=== PATIENT | female | born 1935 | race African-American/Black ===

== ENCOUNTER 2017-11-21 15:38 | Inpatient (IN) | payer MEDICARE, OTHER ==
[~2017-11-21] VITALS: Ht 167.6 cm; Wt 69.9 kg
[~2017-11-21 15:38] MED LIST: BECL8.7A6 INH; FLUT1AER IH; LOSA1TAB40 PO; NAPR-681 PO; SITA100T11 PO
[2017-11-21] MEDS ORDERED: IPRATROPIUM BROMIDE (0.02%) 0.5MG/2.5ML NEB HHN STA (16:51)
[2017-11-21] MEDS ORDERED: METHYLPREDNISOLONE SOD SUCC 125 MG/2 ML VIAL IV STA (16:51)
[2017-11-21 17:08] LABS: HEMATOCRIT. 39.5 % (36.0-48.0); HEMOGLOBIN. 12.6 g/dL (12.0-16.0); MEAN CORPUSCULAR HEMOGLOBIN 25.2 pg (28.0-32.0); MEAN CORPUSCULAR VOLUME 79.1 fL (81.0-99.0); MEAN PLATELET VOLUME 8.1 fl (7.4-10.4); PLATELET 291 x1000/uL (130-400); RED BLOOD CELL COUNT 4.99 mill/uL (4.2-5.4); RED CELL DISTRIBUTION WIDTH 15.2 % (11.6-14.6)
[2017-11-21 17:17] LABS: CHLORIDE 103 mEq/L (98-107)
[2017-11-21] MEDS: ALBUTEROL (0.083%) 2.5MG/3ML NEB HHN SCH ×4 (17:43→21:10)
[2017-11-21 18:13] LABS: PLATELET ESTIMATE NORMAL
[2017-11-21] MEDS ORDERED: ENOXAPARIN 30MG/0.3ML SYR SUBCUT SCH (23:00)
[2017-11-21] MEDS ORDERED: MORPHINE SULFATE 4 MG/ML CPJ (NOT FOR IM USE) IV PRN (23:00)
[2017-11-22] VITALS (7 sets, daily range): BP systolic 113–156; BP diastolic 53–77
[2017-11-22] MEDS: SODIUM CHLORIDE 0.9% 1,000 ML IV SCH (04:33)
[2017-11-22] MEDS: DILTIAZEM HCL 60MG TABLET PO SCH ×3 (06:40→21:07)
[2017-11-22] MEDS: PIPERACILLIN/TAZ 3.375G PREMIX 50 ML IV SCH ×2 (06:40→13:11)
[2017-11-22] MEDS: PANTOPRAZOLE 40MG DR TABLET PO SCH ×2 (06:40→20:48)
[2017-11-22 08:03] LABS: HEMATOCRIT. 37.2 % (36.0-48.0); HEMOGLOBIN. 11.9 g/dL (12.0-16.0); MEAN CORPUSCULAR HEMOGLOBIN 25.2 pg (28.0-32.0); MEAN CORPUSCULAR VOLUME 78.8 fL (81.0-99.0); MEAN PLATELET VOLUME 8.9 fl (7.4-10.4); PLATELET 293 x1000/uL (130-400); RED BLOOD CELL COUNT 4.72 mill/uL (4.2-5.4); RED CELL DISTRIBUTION WIDTH 15.3 % (11.6-14.6)
[2017-11-22] MEDS: LOSARTAN POTASSIUM 50 MG TABLET PO SCH ×2 (08:34→20:48)
[2017-11-22] MEDS: ASPIRIN 81MG TABLET PO SCH (08:34)
[2017-11-22 08:35] LABS: CHLORIDE 101 mEq/L (98-107)
[2017-11-22] MEDS: ENOXAPARIN 40MG/0.4ML SYR SUBCUT SCH (08:35)
[2017-11-22] MEDS: METHYLPREDNISOLONE SOD SUCC 40 MG/ML VIAL IV SCH ×2 (08:35→20:47)
[2017-11-22 08:49] LABS: PLATELET ESTIMATE NORMAL
[2017-11-22] MEDS: ALBUTEROL (0.083%) 2.5MG/3ML NEB HHN PRN ×2 (09:07→21:15)
[2017-11-22 09:09] LABS: HDL CHOLESTEROL 117 mg/dL (40-59); LDL CHOLESTEROL 67 mg/dL (5-100)
[2017-11-22] MEDS: BLOOD SUGAR DIAGNOSTIC STRIP TEST SCH ×3 (11:58→20:48)
[2017-11-22] MEDS ORDERED: POTASSIUM CHLORIDE 10MEQ TABLET SR PO NR (20:00)
[2017-11-22] MEDS ORDERED: DEXTROSE 50% WATER 50ML SYRINGE IV PRN (20:15)
[2017-11-22] MEDS: ATORVASTATIN CALCIUM 20MG TABLET PO SCH (20:48)
[2017-11-22] MEDS ORDERED: LEVOFLOXACIN 500MG PREMIX 100 ML IV SCH (21:00)
[2017-11-22] MEDS: INSULIN LISPRO 100 UNITS/ML SUBCUT SCH (21:36)
[2017-11-22] MEDS ORDERED: PIPERACILLIN/TAZ 3.375G PREMIX 50 ML IV SCH (23:00)
[2017-11-23 00:17] VITALS: BP 135/49
[2017-11-23] MEDS: ALBUTEROL (0.083%) 2.5MG/3ML NEB HHN PRN ×6 (01:01→21:20)
[2017-11-23] MEDS: SODIUM CHLORIDE 0.9% 1,000 ML IV SCH ×2 (01:46→23:03)
[2017-11-23 04:09] VITALS: BP 117/70
[2017-11-23] MEDS ORDERED: PIPERACILLIN/TAZ 3.375G PREMIX 50 ML IV SCH (06:00)
[2017-11-23] MEDS: BLOOD SUGAR DIAGNOSTIC STRIP TEST SCH ×4 (06:35→21:00)
[2017-11-23] MEDS: DILTIAZEM HCL 60MG TABLET PO SCH ×3 (06:35→22:04)
[2017-11-23] MEDS: PANTOPRAZOLE 40MG DR TABLET PO SCH ×2 (06:35→20:50)
[2017-11-23 07:24] LABS: HEMATOCRIT. 35.6 % (36.0-48.0); HEMOGLOBIN. 11.3 g/dL (12.0-16.0); MEAN CORPUSCULAR HEMOGLOBIN 25.5 pg (28.0-32.0); MEAN CORPUSCULAR VOLUME 80.2 fL (81.0-99.0); MEAN PLATELET VOLUME 8.8 fl (7.4-10.4); PLATELET 272 x1000/uL (130-400); RED BLOOD CELL COUNT 4.44 mill/uL (4.2-5.4); RED CELL DISTRIBUTION WIDTH 15.4 % (11.6-14.6)
[2017-11-23 07:39] LABS: CHLORIDE 107 mEq/L (98-107)
[2017-11-23 08:00] VITALS: BP 115/55
[2017-11-23] MEDS: INSULIN LISPRO 100 UNITS/ML SUBCUT SCH ×4 (08:22→22:05)
[2017-11-23] MEDS: METHYLPREDNISOLONE SOD SUCC 40 MG/ML VIAL IV SCH ×2 (09:12→20:42)
[2017-11-23] MEDS: ENOXAPARIN 40MG/0.4ML SYR SUBCUT SCH (09:12)
[2017-11-23] MEDS: ASPIRIN 81MG TABLET PO SCH (09:12)
[2017-11-23] MEDS: LOSARTAN POTASSIUM 50 MG TABLET PO SCH ×2 (09:12→20:50)
[2017-11-23 12:00] VITALS: BP 139/74
[2017-11-23 12:34] LABS: INR 1.1; PROTHROMBIN TIME 11.8 sec (9.4-11.6)
[2017-11-23 16:00] VITALS: BP 139/79
[2017-11-23 18:37] LABS: PLATELET ESTIMATE NORMAL
[2017-11-23 20:00] VITALS: BP 145/75
[2017-11-23] MEDS: ATORVASTATIN CALCIUM 20MG TABLET PO SCH (20:49)
[2017-11-23] MEDS ORDERED: LEVOFLOXACIN 250MG PREMIX 50 ML IV SCH (21:00)
[2017-11-23 21:13] LABS: CLARITY URINE CLEAR (CLEAR); COLOR URINE YELLOW (YELLOW); KETONES URINE NEGATIVE (NEGATIVE); LEUKOCYTE ESTERASE URINE NEGATIVE (NEGATIVE); NITRITE URINE NEGATIVE (NEGATIVE); OCCULT BLOOD URINE NEGATIVE (NEGATIVE); PH URINE 5.5 (4.5-8.0); PROTEIN URINE NEGATIVE (NEGATIVE); UROBILINOGEN URINE 0.2 E.U./dL (0.2-1.0)
[2017-11-23 21:27] LABS: *AMPHETAMINES SCREEN URINE NEGATIVE (NEGATIVE); *BARBITURATES SCREEN URINE NEGATIVE (NEGATIVE); *BENZODIAZEPINES SCREEN URINE NEGATIVE (NEGATIVE); *COCAINE SCREEN URINE NEGATIVE (NEGATIVE); METHADONE URINE SCREEN NEGATIVE (NEGATIVE); OPIATES URINE SCREEN NEGATIVE (NEGATIVE)
[2017-11-23 21:28] LABS: CANNABINOID URINE SCREEN NEGATIVE (NEGATIVE); PHENCYCLIDINE URINE SCREEN NEGATIVE (NEGATIVE)
[2017-11-24] VITALS: BP 129/77
[2017-11-24 04:00] VITALS: BP 156/83
[2017-11-24] MEDS: PANTOPRAZOLE 40MG DR TABLET PO SCH (05:57)
[2017-11-24] MEDS: DILTIAZEM HCL 60MG TABLET PO SCH ×2 (05:57→12:56)
[2017-11-24] MEDS: BLOOD SUGAR DIAGNOSTIC STRIP TEST SCH ×3 (07:04→17:03)
[2017-11-24 07:15] LABS: HEMATOCRIT. 35.6 % (36.0-48.0); HEMOGLOBIN. 11.4 g/dL (12.0-16.0); MEAN CORPUSCULAR HEMOGLOBIN 25.6 pg (28.0-32.0); MEAN CORPUSCULAR VOLUME 79.8 fL (81.0-99.0); MEAN PLATELET VOLUME 8.7 fl (7.4-10.4); PLATELET 293 x1000/uL (130-400); RED BLOOD CELL COUNT 4.46 mill/uL (4.2-5.4); RED CELL DISTRIBUTION WIDTH 15.5 % (11.6-14.6)
[2017-11-24 08:00] VITALS: BP 155/80
[2017-11-24 08:09] LABS: CHLORIDE 106 mEq/L (98-107)
[2017-11-24] MEDS: LOSARTAN POTASSIUM 50 MG TABLET PO SCH (08:35)
[2017-11-24] MEDS: METHYLPREDNISOLONE SOD SUCC 40 MG/ML VIAL IV SCH (08:35)
[2017-11-24] MEDS: ENOXAPARIN 40MG/0.4ML SYR SUBCUT SCH (08:35)
[2017-11-24] MEDS: ASPIRIN 81MG TABLET PO SCH (08:35)
[2017-11-24] MEDS: INSULIN LISPRO 100 UNITS/ML SUBCUT SCH ×2 (08:41→12:58)
[2017-11-24 12:00] VITALS: BP 114/66
[2017-11-24 14:06] LABS: PLATELET ESTIMATE NORMAL
[2017-11-24] MEDS: ALBUTEROL (0.083%) 2.5MG/3ML NEB HHN PRN (14:22)
[2017-11-24 16:00] VITALS: BP 159/84
[2017-11-24] MEDS: SODIUM CHLORIDE 0.9% 1,000 ML IV SCH (16:00)
[2017-11-24 16:45] VITALS: BP 159/84
== END 2017-11-24 18:00 | disposition home or self-care (01) | DRG 189 ==
LOC: ER 15:38 → 6WST 20:40 → ENRESERV 21:57 → CANRESERV 21:57 → EDBEDREQSVC 23:46 → ENRESERV 23:48
PROVIDERS: ADMIT Internal Medicine; ATTEND Internal Medicine
DX: J96.00 Acute respiratory failure, unspecified whether with hypoxia or hypercapnia (principal); I47.1 Supraventricular tachycardia; Z99.81 Dependence on supplemental oxygen; J44.1 Chronic obstructive pulmonary disease with (acute) exacerbation; E11.9 Type 2 diabetes mellitus without complications; I10 Essential (primary) hypertension; Z87.891 Personal history of nicotine dependence; Z79.899 Other long term (current) drug therapy
CPT/HCPCS: 36415; 71045; 80048; 80053; 80061; 80305; 81003; 82962; 83880; 84443; 84484; 85025; 85610; 87040; 87086; 93005; 94640; 94644; 94664; 96374; 99285; J1650; J1815; J1956; J2543; J2920; J2930; J7030; J7611